=== PATIENT | female | born 1935 | race Caucasian/White ===

== ENCOUNTER 2016-07-25 06:11 | Observation (INO) | payer OTHER ==
[~2016-07-25] VITALS: Ht 162.6 cm; Wt 63.0 kg
[~2016-07-25 06:11] MED LIST: ALLERGY RELIEF10 MG PO; ALPRAZOLAM0.25 M2 PO; ALPRAZOLAM0.5 MG; ALPRAZOLAM0.5 MG PO; AMIODARONE HCL200 MG; AMLODIPINE BESY10 MG; AMLODIPINE BESY10 MG PO; AMLODIPINE BESYL5 MG; AMLODIPINE BESYL5 MG PO; AMOX TR-K CLV1 EAC4; AMOXICILLIN-CL1 EACH; AMOXICILLIN500 MG; ASPIRIN325 MG PO; ATENOLOL100 MG PO; ATENOLOL50 M1 PO; ATENOLOL50 MG; ATENOLOL50 MG PO; AUGMENTIN875 MG PO; CEPHALEXIN500 MG; CIPRO HC LEFT EAR; CIPRO500 MG PO; CORTISONE57 GM TP; COUMADIN,JANTOV10 MG PO; COUMADIN,JANTOVE1 MG PO; COUMADIN,JANTOVE4 MG PO; COUMADIN1 MG PO; COUMADIN10 MG PO; COUMADIN4 MG PO; COUMADIN7.5 MG PO; Coumadin,Jantoven PO; DILTIAZEM 120 MG; FLAGYL500 MG PO; FUROSEMIDE40 MG; FUROSEMIDE40 MG PO; HYDROCODONE-HO473 ML; HYDROCORTISONE TP; HYDROCORTISONE28 G4 TP; LASIX20 MG PO; LEVOFLOXACIN500 MG; LOVENOX60 MG/0.6 SC; MELOXICAM15 MG PO; MONTELUKAST SOD10 MG PO; MULTAQ400 MG; MULTAQ400 MG PO; Milk Of Magnesia,MOM PO; NORCO 5/3251 TABLET PO; NORVASC10 MG PO; NORVASC5 MG PO; Norvasc PO; OMEPRAZOLE40 M1; PACERONE200 MG PO; PAIN RELIEF EX500 MG PO; PHILLIPS'400 MG/5 M PO; POTASSIUM CHLO10 ME3 PO; POTASSIUM CHLO10 ME4; POTASSIUM CHLO10 MEQ PO; PRILOSEC40 MG PO; SIMVASTATIN20 MG; SIMVASTATIN20 MG PO; SIMVASTATIN40 MG PO; SYMBICORT60 INHALAT IH; TENORMIN25 MG PO; TENORMIN50 MG PO; TESSALON PERLE100 MG PO; TRAMADOL HCL50 MG; TRAMADOL HCL50 MG PO; TYLENOL REGULA325 MG PO; Tenormin PO; Tylenol Extra Streng PO; WARFARIN; WARFARIN SOD; WARFARIN SOD 4MG TAB; WARFARIN SODIUM 4 MG; WARFARIN SODIUM4 MG; XANAX0.25 MG PO; XANAX0.5 MG PO; ZOCOR20 MG PO; ZOFRAN4 MG PO; ZYRTEC5 MG PO
[2016-07-25 06:52] LABS: BASOPHIL COUNT 0.1 K/uL (0-0.1); EOSINOPHIL (%) 3.1 % (0-5); EOSINOPHIL COUNT 0.2 K/uL (0-0.3); HEMATOCRIT 39.2 % (36.0-46.0); IMMATURE GRANULOCYTE (%) 0.3 % (0.0-0.7); INSTRUMENT ABS NEUTROPHIL CT 3.6 K/uL; LYMPHOCYTE COUNT 1.5 K/uL (1.0-2.8); MCH 32.2 PG (29.0-34.0); MCHC 32.4 G/DL (30.0-36.0); MCV 99.5 FL (83-99); MEAN PLAT.VOLUME 11.4 uM^3 (9.5-12.4); MONOCYTE (%) 9.7 % (3-12); MONOCYTE COUNT 0.6 K/uL (0-0.8); NEUTROPHIL COUNT 3.6 K/uL (1.8-6.4); PLATELET COUNT 177 K/uL (156-360); RBC DIS.WIDTH-CV 13.6 % (11.8-14.6); RBC DIS.WIDTH-SD 50.2 % (39-53); RED BLOOD COUNT 3.94 M/uL (3.80-5.20); WHITE BLOOD COUNT 5.9 K/uL (4.1-10.2)
[2016-07-25 07:01] LABS: INTER. NORMALIZED RATIO 2.7; PROTHROMBIN TIME 28.4 (9.2-11.2); PTT 36.9 (25-32)
[2016-07-25 07:04] LABS: CHLORIDE 107 mEq/L (99-109); POTASSIUM 3.8 mEq/L (3.7-5.4); SODIUM 140 mEq/L (136-147)
[2016-07-25 07:06] LABS: GLUCOSE 111 mg/dL (70-99)
[2016-07-25 07:07] LABS: ANION GAP 7 MEQ/L (2-14)
[2016-07-25 07:10] LABS: GFR ESTIMATE (CALCULATED) > 59 mL/min/
[2016-07-25 07:11] LABS: UREA NITROGEN (BUN) 14 mg/dL (9-23)
[2016-07-25 07:39] LABS: TROP-I INTERPRETATION NEGATIVE; TROPONIN-I < 0.01 ng/mL (0.0-0.30)
[2016-07-25] MEDS ORDERED: COUMADIN4 MG PO (08:30)
[2016-07-25] MEDS ORDERED: NORVASC5 MG PO (08:31)
[2016-07-25] MEDS ORDERED: LASIX20 MG PO (08:33)
[2016-07-25] MEDS ORDERED: K-DUR10 MEQ PO (08:34)
[2016-07-25] MEDS ORDERED: CENTRUM SILVER1 EAC4 PO (08:34)
[2016-07-25] MEDS ORDERED: ARTIFICIAL TEAR1510 BOTH EYES (08:34)
[2016-07-25] MEDS ORDERED: SINGULAIR10 MG PO (08:35)
[2016-07-25 11:42] VITALS: BP 161/80
[2016-07-25 12:47] LABS: TROP-I INTERPRETATION NEGATIVE; TROPONIN-I < 0.01 ng/mL (0.0-0.30)
[2016-07-25 19:35] LABS: TROP-I INTERPRETATION NEGATIVE; TROPONIN-I 0.01 ng/mL (0.0-0.30)
[2016-07-25 20:36] VITALS: BP 149/68
[2016-07-26 00:30] VITALS: BP 145/69
[2016-07-26 04:28] VITALS: BP 135/64
[2016-07-26 07:32] VITALS: BP 148/70
[2016-07-26 07:37] LABS: INTER. NORMALIZED RATIO 2.4; PROTHROMBIN TIME 25.5 (9.2-11.2)
== END 2016-07-26 12:18 | disposition home or self-care (01) ==
LOC: EME 06:11 → 5WEST 09:55 → EDOF 09:55 → 5WEST 11:28
PROVIDERS: Emergency Medicine; Hospitalist
DX: R07.89 Other chest pain (principal); I11.0 Hypertensive heart disease with heart failure; I50.32 Chronic diastolic (congestive) heart failure; Z95.4 Presence of other heart-valve replacement; J44.9 Chronic obstructive pulmonary disease, unspecified; E78.5 Hyperlipidemia, unspecified; Z95.0 Presence of cardiac pacemaker
CPT/HCPCS: 71010; 80048; 83880; 84484; 85025; 85610; 85730; 93005; 94640; 94640 76; G0378; J1940

== ENCOUNTER 2016-12-25 12:11 | Emergency (ER) | payer OTHER ==
[~2016-12-25] VITALS: Ht 160 cm; Wt 61.6 kg
[~2016-12-25 12:11] MED LIST changes: +ARTIFICIAL TEAR1510 BOTH EYES; +CENTRUM SILVER1 EAC4 PO; +K-DUR10 MEQ PO; +SINGULAIR10 MG PO
[2016-12-25 13:11] LABS: HEMATOCRIT 44.2 % (36.0-46.0); MCH 32.5 PG (29.0-34.0); MCHC 33.3 G/DL (30.0-36.0); MCV 97.6 FL (83-99); MEAN PLAT.VOLUME 11.2 uM^3 (9.5-12.4); PLATELET COUNT 181 K/uL (156-360); RBC DIS.WIDTH-CV 13.4 % (11.8-14.6); RBC DIS.WIDTH-SD 47.7 % (39-53); RED BLOOD COUNT 4.53 M/uL (3.80-5.20); WHITE BLOOD COUNT 7.8 K/uL (4.1-10.2)
[2016-12-25 13:20] LABS: CHLORIDE 105 mEq/L (99-109); INTER. NORMALIZED RATIO 3.9; POTASSIUM 3.8 mEq/L (3.7-5.4); PROTHROMBIN TIME 45.2 SEC (10.2-12.9); SODIUM 139 mEq/L (136-147)
[2016-12-25 13:21] LABS: GLUCOSE 122 mg/dL (70-99)
[2016-12-25 13:23] LABS: ANION GAP 8 MEQ/L (2-14)
[2016-12-25 13:25] LABS: GFR ESTIMATE (CALCULATED) > 59 mL/min/
[2016-12-25 13:26] LABS: UREA NITROGEN (BUN) 12 mg/dL (9-23)
[2016-12-25 13:33] LABS: TROP-I INTERPRETATION NEGATIVE; TROPONIN-I < 0.01 ng/mL (0.0-0.30)
[2016-12-25 14:43] VITALS: BP 168/89
== END 2016-12-25 14:44 | disposition home or self-care (01) ==
LOC: EME → EDBD 12:11 → EME 12:11
PROVIDERS: Emergency Medicine
DX: R55 Syncope and collapse (principal); I10 Essential (primary) hypertension; I48.91 Unspecified atrial fibrillation; K21.9 Gastro-esophageal reflux disease without esophagitis; J45.909 Unspecified asthma, uncomplicated; Z95.0 Presence of cardiac pacemaker; Z95.2 Presence of prosthetic heart valve; Z79.01 Long term (current) use of anticoagulants; Z85.3 Personal history of malignant neoplasm of breast; Z96.652 Presence of left artificial knee joint; Z87.891 Personal history of nicotine dependence
CPT/HCPCS: 71010; 80048; 84484; 85027; 85610; 93005; 99281; 99284; J2405

== ENCOUNTER 2017-03-18 10:00 | Emergency (ER) | payer OTHER ==
[~2017-03-18] VITALS: Ht 160 cm; Wt 64.5 kg
[2017-03-18 11:08] LABS: HEMATOCRIT 42.2 % (36.0-46.0); MCH 32.6 PG (29.0-34.0); MCHC 32.9 G/DL (30.0-36.0); MCV 99.1 FL (83-99); MEAN PLAT.VOLUME 11.5 uM^3 (9.5-12.4); PLATELET COUNT 196 K/uL (156-360); RBC DIS.WIDTH-CV 13.2 % (11.8-14.6); RBC DIS.WIDTH-SD 47.7 % (39-53); RED BLOOD COUNT 4.26 M/uL (3.80-5.20); WHITE BLOOD COUNT 6.2 K/uL (4.1-10.2)
[2017-03-18 11:20] LABS: CHLORIDE 108 mEq/L (99-109); POTASSIUM 4.1 mEq/L (3.7-5.4); SODIUM 141 mEq/L (136-147)
[2017-03-18 11:22] LABS: GLUCOSE 102 mg/dL (70-99)
[2017-03-18 11:23] LABS: ANION GAP 8 MEQ/L (2-14)
[2017-03-18 11:26] LABS: GFR ESTIMATE (CALCULATED) > 59 mL/min/
[2017-03-18 11:27] LABS: UREA NITROGEN (BUN) 15 mg/dL (9-23)
[2017-03-18 13:38] LABS: TROP-I INTERPRETATION NEGATIVE; TROPONIN-I 0.02 ng/mL (0.0-0.30)
[2017-03-18] MEDS ORDERED: TESSALON PERLE100 MG PO (14:26)
[2017-03-18] MEDS ORDERED: ZITHROMAX250 MG PO (14:26)
[2017-03-18 14:57] LABS: TROP-I INTERPRETATION NEGATIVE; TROPONIN-I < 0.01 ng/mL (0.0-0.30)
[2017-03-18 15:00] VITALS: BP 179/80
== END 2017-03-18 15:30 | disposition home or self-care (01) ==
LOC: EME 10:00
PROVIDERS: Nurse Practitioner Family
DX: J20.9 Acute bronchitis, unspecified (principal); R07.9 Chest pain, unspecified; R06.00 Dyspnea, unspecified; J45.909 Unspecified asthma, uncomplicated; I10 Essential (primary) hypertension; K21.9 Gastro-esophageal reflux disease without esophagitis; Z87.891 Personal history of nicotine dependence; Z95.2 Presence of prosthetic heart valve; Z85.3 Personal history of malignant neoplasm of breast; Z96.652 Presence of left artificial knee joint
CPT/HCPCS: 71020; 71275; 80048; 84484; 85027; 93005; 94640; 99281; 99284; J7030

== ENCOUNTER 2017-04-05 23:49 | Inpatient (IN) | payer OTHER ==
[~2017-04-05] VITALS: Ht 160 cm; Wt 61.9 kg
[~2017-04-05 23:49] MED LIST changes: +OMEPRAZOLE40 M1 PO; +ZITHROMAX250 MG PO
[2017-04-06 01:20] LABS: BASOPHIL COUNT 0.1 K/uL (0-0.1); EOSINOPHIL (%) 1.4 % (0-5); EOSINOPHIL COUNT 0.1 K/uL (0-0.3); HEMATOCRIT 39.2 % (36.0-46.0); IMMATURE GRANULOCYTE (%) 0.4 % (0.0-0.7); INSTRUMENT ABS NEUTROPHIL CT 6.4 K/uL; LYMPHOCYTE COUNT 1.1 K/uL (1.0-2.8); MCH 32.9 PG (29.0-34.0); MCHC 32.9 G/DL (30.0-36.0); MEAN PLAT.VOLUME 11.4 uM^3 (9.5-12.4); MONOCYTE (%) 9.2 % (3-12); MONOCYTE COUNT 0.8 K/uL (0-0.8); NEUTROPHIL (%) 74.8 % (45-76); NEUTROPHIL COUNT 6.4 K/uL (1.8-6.4); PLATELET COUNT 204 K/uL (156-360); RBC DIS.WIDTH-CV 14.6 % (11.8-14.6); RBC DIS.WIDTH-SD 52.4 % (39-53); RED BLOOD COUNT 3.92 M/uL (3.80-5.20); WHITE BLOOD COUNT 8.6 K/uL (4.1-10.2)
[2017-04-06 01:28] LABS: CHLORIDE 109 mEq/L (99-109); POTASSIUM 3.9 mEq/L (3.7-5.4); SODIUM 142 mEq/L (136-147)
[2017-04-06 01:29] LABS: GLUCOSE 137 mg/dL (70-99)
[2017-04-06 01:31] LABS: ANION GAP 10 MEQ/L (2-14)
[2017-04-06 01:33] LABS: GFR ESTIMATE (CALCULATED) > 59 mL/min/
[2017-04-06 01:34] LABS: UREA NITROGEN (BUN) 19 mg/dL (9-23)
[2017-04-06 01:43] LABS: TROP-I INTERPRETATION NEGATIVE; TROPONIN-I 0.02 ng/mL (0.0-0.30)
[2017-04-06 08:17] LABS: INTER. NORMALIZED RATIO 4.2; PROTHROMBIN TIME 48.1 SEC (10.2-12.9)
[2017-04-06] MEDS ORDERED: LOSARTAN POTASS50 MG PO (09:22)
[2017-04-06] MEDS ORDERED: VENTOLIN HFA18 GM IH (10:37)
[2017-04-06 12:25] LABS: TROP-I INTERPRETATION NEGATIVE; TROPONIN-I 0.01 ng/mL (0.0-0.30)
[2017-04-06 13:48] VITALS: BP 174/85
[2017-04-06 16:07] VITALS: BP 144/88
[2017-04-06 18:15] LABS: TROP-I INTERPRETATION NEGATIVE; TROPONIN-I 0.02 ng/mL (0.0-0.30)
[2017-04-06 19:52] VITALS: BP 151/68
[2017-04-06 23:55] VITALS: BP 166/70
[2017-04-07 06:03] LABS: EOSINOPHIL (%) 0.1 % (0-5); HEMATOCRIT 41.1 % (36.0-46.0); IMMATURE GRANULOCYTE (%) 0.5 % (0.0-0.7); IMMATURE GRANULOCYTE COUNT 0.1 K/uL; INSTRUMENT ABS NEUTROPHIL CT 8.7 K/uL; LYMPHOCYTE COUNT 1.2 K/uL (1.0-2.8); MCH 33.3 PG (29.0-34.0); MCHC 33.3 G/DL (30.0-36.0); MEAN PLAT.VOLUME 11.7 uM^3 (9.5-12.4); MONOCYTE (%) 10.4 % (3-12); MONOCYTE COUNT 1.2 K/uL (0-0.8); NEUTROPHIL (%) 78.2 % (45-76); NEUTROPHIL COUNT 8.7 K/uL (1.8-6.4); PLATELET COUNT 220 K/uL (156-360); RBC DIS.WIDTH-CV 14.6 % (11.8-14.6); RBC DIS.WIDTH-SD 52.5 % (39-53); RED BLOOD COUNT 4.11 M/uL (3.80-5.20); WHITE BLOOD COUNT 11.2 K/uL (4.1-10.2)
[2017-04-07 06:11] LABS: INTER. NORMALIZED RATIO 3.7
[2017-04-07 06:32] LABS: ANION GAP 13 MEQ/L (2-14); CHLORIDE 104 MEQ/L (99-109); GFR ESTIMATE (CALCULATED) > 59 mL/min/; GLUCOSE 114 mg/dL (70-99); POTASSIUM 3.5 MEQ/L (3.7-5.4); SAMPLE HEMOLYSIS CHECK 0; SAMPLE ICTERIC CHECK 0; SAMPLE LIPEMIA CHECK 0; SODIUM 142 MEQ/L (136-147); UREA NITROGEN (BUN) 23 mg/dL (9-23)
[2017-04-07 07:56] VITALS: BP 139/81
[2017-04-07 12:00] VITALS: BP 157/97
[2017-04-07 16:00] VITALS: BP 152/81
[2017-04-07 19:33] VITALS: BP 158/82
[2017-04-07 23:46] VITALS: BP 148/84
[2017-04-08] VITALS (7 sets, daily range): BP systolic 132–191; BP diastolic 66–95
[2017-04-08 06:59] LABS: EOSINOPHIL (%) 0.6 % (0-5); EOSINOPHIL COUNT 0.1 K/uL (0-0.3); HEMATOCRIT 41.1 % (36.0-46.0); IMMATURE GRANULOCYTE (%) 0.3 % (0.0-0.7); INSTRUMENT ABS NEUTROPHIL CT 6.5 K/uL; LYMPHOCYTE COUNT 1.6 K/uL (1.0-2.8); MCH 33.5 PG (29.0-34.0); MCHC 33.6 G/DL (30.0-36.0); MCV 99.8 FL (83-99); MEAN PLAT.VOLUME 11.8 uM^3 (9.5-12.4); MONOCYTE (%) 8.8 % (3-12); MONOCYTE COUNT 0.8 K/uL (0-0.8); NEUTROPHIL (%) 71.8 % (45-76); NEUTROPHIL COUNT 6.5 K/uL (1.8-6.4); PLATELET COUNT 228 K/uL (156-360); RBC DIS.WIDTH-CV 14.7 % (11.8-14.6); RBC DIS.WIDTH-SD 54.2 % (39-53); RED BLOOD COUNT 4.12 M/uL (3.80-5.20)
[2017-04-08 07:13] LABS: ANION GAP 10 MEQ/L (2-14); CHLORIDE 106 MEQ/L (99-109); GFR ESTIMATE (CALCULATED) > 59 mL/min/; GLUCOSE 103 mg/dL (70-99); POTASSIUM 3.8 MEQ/L (3.7-5.4); SAMPLE HEMOLYSIS CHECK 0; SAMPLE ICTERIC CHECK 0; SAMPLE LIPEMIA CHECK 0; SODIUM 142 MEQ/L (136-147); UREA NITROGEN (BUN) 25 mg/dL (9-23)
[2017-04-08 07:14] LABS: INTER. NORMALIZED RATIO 2.4
[2017-04-09 03:44] VITALS: BP 135/63; BP 182/74
[2017-04-09 06:10] LABS: EOSINOPHIL COUNT 0.1 K/uL (0-0.3); HEMATOCRIT 39.6 % (36.0-46.0); IMMATURE GRANULOCYTE (%) 0.3 % (0.0-0.7); INSTRUMENT ABS NEUTROPHIL CT 5.3 K/uL; LYMPHOCYTE COUNT 1.2 K/uL (1.0-2.8); MCH 32.8 PG (29.0-34.0); MCHC 32.6 G/DL (30.0-36.0); MCV 100.8 FL (83-99); MEAN PLAT.VOLUME 11.6 uM^3 (9.5-12.4); MONOCYTE (%) 10.5 % (3-12); MONOCYTE COUNT 0.8 K/uL (0-0.8); NEUTROPHIL (%) 71.6 % (45-76); NEUTROPHIL COUNT 5.3 K/uL (1.8-6.4); PLATELET COUNT 212 K/uL (156-360); RBC DIS.WIDTH-CV 14.6 % (11.8-14.6); RBC DIS.WIDTH-SD 53.8 % (39-53); RED BLOOD COUNT 3.93 M/uL (3.80-5.20); WHITE BLOOD COUNT 7.3 K/uL (4.1-10.2)
[2017-04-09 06:16] LABS: INTER. NORMALIZED RATIO 1.8; PROTHROMBIN TIME 20.1 SEC (10.2-12.9)
[2017-04-09 06:43] LABS: ANION GAP 9 MEQ/L (2-14); CHLORIDE 102 MEQ/L (99-109); GFR ESTIMATE (CALCULATED) > 59 mL/min/; GLUCOSE 98 mg/dL (70-99); POTASSIUM 3.7 MEQ/L (3.7-5.4); SAMPLE HEMOLYSIS CHECK 0; SAMPLE ICTERIC CHECK 0; SAMPLE LIPEMIA CHECK 0; SODIUM 138 MEQ/L (136-147); UREA NITROGEN (BUN) 23 mg/dL (9-23)
[2017-04-09 07:52] VITALS: BP 152/79
[2017-04-09] MEDS ORDERED: LOSARTAN POTAS100 MG PO (11:35)
[2017-04-09] MEDS ORDERED: AMLODIPINE BESYL5 MG PO (11:35)
[2017-04-09] MEDS ORDERED: CARVEDILOL12.5 MG PO (11:35)
[2017-04-09] MEDS ORDERED: PRAVASTATIN SOD40 MG PO (11:35)
[2017-04-09] MEDS ORDERED: ASPIR-LOW81 MG PO (11:36)
[2017-04-09] MEDS ORDERED: FUROSEMIDE40 MG PO (11:36)
== END 2017-04-09 12:39 | disposition home or self-care (01) | DRG 292 ==
LOC: EME 23:49 → EDOF 04-06 05:04 → 5SOUTH 04-06 05:04 → ENRESERV 04-06 05:14 → 5SOUTH 04-06 13:34
PROVIDERS: Emergency Medicine; Hospitalist; Internal Medicine; Internal Medicine Cardiovascular Disease
DX: I11.0 Hypertensive heart disease with heart failure (principal); J44.0 Chronic obstructive pulmonary disease with (acute) lower respiratory infection; I50.43 Acute on chronic combined systolic (congestive) and diastolic (congestive) heart failure; J44.1 Chronic obstructive pulmonary disease with (acute) exacerbation; J20.9 Acute bronchitis, unspecified; E87.6 Hypokalemia; E78.5 Hyperlipidemia, unspecified; Z96.652 Presence of left artificial knee joint; Z95.2 Presence of prosthetic heart valve; Z95.0 Presence of cardiac pacemaker; I48.91 Unspecified atrial fibrillation; K21.9 Gastro-esophageal reflux disease without esophagitis; I25.10 Atherosclerotic heart disease of native coronary artery without angina pectoris; Z79.01 Long term (current) use of anticoagulants; Z87.891 Personal history of nicotine dependence; D68.32 Hemorrhagic disorder due to extrinsic circulating anticoagulants; T45.515A Adverse effect of anticoagulants, initial encounter; R64 Cachexia; Z68.24 Body mass index [BMI] 24.0-24.9, adult; F41.9 Anxiety disorder, unspecified; I42.0 Dilated cardiomyopathy; R09.02 Hypoxemia; Z66 Do not resuscitate
CPT/HCPCS: 71010; 80048; 83880; 84484; 85025; 85610; 87502; 93005; 94640 76; 94760; 94799; J0360; J1100; J1940; J7512